=== PATIENT | female | born 1980 | race Caucasian/White ===

== ENCOUNTER → 2020-10-03 | Outpatient (CLI) | payer OTHER ==
--- NOTE | 2020-10-03 12:48 | Diagnostic Imaging Report ---
INDICATION: Routine screening. COMPARISON: No prior mammograms are available for comparison. TECHNIQUE: 2D and 3D bilateral screening mammography was performed with CAD. FINDINGS: Bilateral subpectoral breast implants are noted. The implant contours are smooth. The breast parenchyma is heterogeneously dense, limiting the sensitivity of mammography. There is questionable architectural distortion in the central left breast on the MLO view at the nipple line. Additional views are recommended. No definite correlate on the CC view is seen. The right breast is unremarkable. No malignant appearing microcalcifications are identified. The axillae are unremarkable. IMPRESSION: Left breast questionable architectural distortion. Additional views are recommended for further evaluation. ACR BI-RADS Category 0: Incomplete. (Needs additional imaging evaluation). Result letter will be mailed to the patient. Note: At least 10% of breast cancer is not imaged by mammography. Dictated by: Dictated on workstation # [id number]
== END ==
LOC: RAD 09:37
PROVIDERS: ATTEND Nurse Practitioner Family
DX: Z12.31 Encounter for screening mammogram for malignant neoplasm of breast (principal)
CPT/HCPCS: 77063; 77067

== ENCOUNTER → 2020-10-19 | Outpatient (CLI) | payer OTHER ==
--- NOTE | 2020-10-19 14:37 | Diagnostic Imaging Report ---
Indication: Left breast density. Patient present for additional views. Correlation is made with screening study from 10/03/2020. Unilateral left 2-D and 3-D diagnostic mammography was performed. This includes spot compression ML and spot compression MLO views. Additional views fail to demonstrate a discrete mass. There is some mild residual density 3 cm behind the nipple. If further evaluation of the band of tissue from 3-9 o'clock 3 cm from the nipple is recommended with ultrasound. This will be performed today. IMPRESSION: Mild residual density left breast. Further evaluation with ultrasound is recommended will be performed today. BI-RADS Category 0 ACR BI-RADS Category 0: Incomplete. (Needs additional imaging evaluation). Result letter will be mailed to the patient. Note: At least 10% of breast cancer is not imaged by mammography. Dictated by: Dictated on workstation # [id number]
--- NOTE | 2020-10-19 16:30 | Diagnostic Imaging Report ---
INDICATION: Left breast density. CORRELATION is made with diagnostic mammogram earlier the same day and screening mammogram from 10/03/2020. Interrogation of the left breast was performed. There are several cysts in the retroareolar left breast. Six o'clock retroareolar region demonstrates a 10 mm x 3 mm x 8 mm cyst. No internal vascularity is seen. There are no solid masses. IMPRESSION: BI-RADS Category 2. Several small cysts of the retroareolar left breast, perhaps accounting for the mammographic density. The patient may return to routine annual screening mammography. Dictated by: Dictated on workstation # [id number]
== END ==
LOC: RAD 14:01
PROVIDERS: ATTEND Nurse Practitioner Family
DX: N60.12 Diffuse cystic mastopathy of left breast (principal)
CPT/HCPCS: 76642; 77065; G0279